=== PATIENT | male | born 1945 | race Hispanic/Latino ===

== ENCOUNTER 2018-12-15 08:35 | Emergency (ER) | payer MEDICARE, OTHER ==
[2018-12-15 08:58] VITALS: BP 145/83; PULSE 101; RESP 20; TEMP 98; O2SAT 96; BMI 30.4
[2018-12-15] MEDS ORDERED: Iohexol 240 (50 ml) PO ONE (09:49)
--- NOTE | 2018-12-15 10:15 | ED PDOC ---
HPI: Abdomen Time Seen by Provider: 12/15/18 09:06 Chief Complaint (Nursing): Abdominal Pain Chief Complaint (Provider): Abdominal Pain History Per: Patient History/Exam Limitations: no limitations Onset/Duration Of Symptoms: Intermittent Episodes (x3 weeks), Worse Since (3 days) Additional Complaint(s): 73 year old male with past medical history of arthritis, presents to the emergency department with a complaint of intermittent abdominal pain for 3 weeks but worse 3 days ago. He reports associated constipation, diarrhea, and abdominal cramping. At present, patient feels better and reports last bowel movement was yesterday. Patient was seen at Urgent Care prior to arrival then told to come to ED for further evaluation, thus, prompting visit. Otherwise, he denies any fever, chills, bloody stools, chest pain, or shortness of breath. PCP: none provided Past Medical History Reviewed: Historical Data, Nursing Documentation, Vital Signs Vital Signs: Last Vital Signs Temp 98 F 12/15/18 08:57 Pulse 101 H 12/15/18 08:57 Resp 20 12/15/18 08:57 BP 145/83 12/15/18 08:57 Pulse Ox 96 12/15/18 08:57 - Medical History PMH: Arthritis, COPD, Diverticulitis, HTN - Surgical History Surgical History: Denies: No Surg Hx Other surgeries: right knee - Family History Family History: States: Unknown Family Hx - Allergies Allergies/Adverse Reactions: Allergies Allergy/AdvReac Type Severity Reaction Status Date / Time Sulfa (Sulfonamide Allergy FEVER Verified 12/15/18 09:11 Antibiotics) Review of Systems ROS Statement: Except As Marked, All Systems Reviewed And Found Negative Constitutional: Negative for: Fever, Chills Cardiovascular: Negative for: Chest Pain Respiratory: Negative for: Shortness of Breath Gastrointestinal: Positive for: Abdominal Pain (with cramping), Diarrhea, Constipation. Negative for: Hematochezia Physical Exam - Reviewed Nursing Documentation Reviewed: Yes Vital Signs Reviewed: Yes - Physical Exam Appears: Positive for: Non-toxic, No Acute Distress Skin: Positive for: Normal Color Eye Exam: Positive for: Normal appearance, EOMI, PERRL Neurologic/Psych: Positive for: Alert, Oriented (x3) - ECG O2 Sat by Pulse Oximetry: 96 (RA) Pulse Ox Interpretation: Normal Medical Decision Making Medical Decision Making: Initial Impression: Abdominal pain; abnormal bowel movement Differential diagnosis: colitis; diverticulitis; SBO Initial Plan: * CT ABD/pelvis * EKG * Labs * Omnipaque 240 50ml PO Time: 48 --Limited physical exam as patient is refusing further labs, imaging, or evaluation. He states that he will talk to his insurance first. Time: 4 --This patient is choosing to leave against medical advice. Patient states that he called his insurance and was told that ED visit may not be covered as [facility] is [id number]. In light of the patient's decision to leave AMA, follow-up has been arranged and the patient is aware of the importance of following up as instructed. The patient has been advised that they should return to the ED immediately if they change their mind at any time, or if their condition begins to change or worsen in any way. Scribe Attestation: Documented by Omayra Araiza, acting as a scribe for Ivonne James MD. Provider Scribe Attestation: All medical record entries made by the Scribe were at my direction and personally dictated by me. I have reviewed the chart and agree that the record accurately reflects my personal performance of the history, physical exam, medical decision making, and the department course for this patient. I have also personally directed, reviewed, and agree with the discharge instructions and disposition. Disposition - Clinical Impression Clinical Impression: Abdominal pain, Left against medical advice - Patient ED Disposition Is Patient to be Admitted: No Doctor Will See Patient In The: Office Counseled Patient/Family Regarding: Studies Performed, Diagnosis - Disposition Referrals: [facility] [Outside] Disposition: Against Medical Advice Disposition Time: 10:14 Condition: STABLE Additional Instructions: KALE LARIOS JR, thank you for letting us take care of you today. Your provider was Ivonne James MD and you were treated for ABD PAIN; SENT BY PCP. The emergency medical care you received today was directed at your acute symptoms. If you were prescribed any medication, please fill it and take as directed. It may take several days for your symptoms to resolve. Return to the Emergency Department if your symptoms worsen, do not improve, or if you have any other problems. Please contact your doctor or call one of the physicians/clinics you have been referred to that are listed on the Patient Visit Information form that is included in your discharge packet. Bring any paperwork you were given at discharge with you along with any medications you are taking to your follow up visit. Our treatment cannot replace ongoing medical care by a primary care provider outside of the emergency department. Thank you for allowing the [facility] team to be part of your care today. If you had an X-Ray or CT scan: A Radiologist will review the ED reading if any change in treatment is needed we will contact you. If you had a blood, urine, or wound culture: It will take several days for the results, if any change in treatment is needed we will contact you. If you had an STI test: It will take 48 hours for the results. Please call after 1 week if you have not heard back. Instructions: Acute Abdomen (Belly Pain), Adult (DC), Leaving Against Medical Advice
== END 2018-12-15 10:27 | disposition left against medical advice (07) ==
LOC: H.ER 08:35
DX: R10.9 Unspecified abdominal pain (principal)